=== PATIENT | male | born 1995 | race African-American/Black ===

== ENCOUNTER 2017-09-13 18:24 | Emergency (ER) | payer OTHER, SELFPAY ==
[2017-09-13 18:25] VITALS: BP 141/88; PULSE 75; RESP 16; TEMP 36.7; O2SAT 96; BMI 29.0
--- NOTE | 2017-09-13 18:32 | EKG12_ITS ---
Test Reason : CP Blood Pressure : / mmHG Vent. Rate : 067 BPM Atrial Rate : 067 BPM P-R Int : 140 ms QRS Dur : 098 ms QT Int : 376 ms P-R-T Axes : 063 019 043 degrees QTc Int : 397 ms Normal sinus rhythm with sinus arrhythmia Normal ECG Confirmed by GAIL DONNELLY, JAMAL ([id number]), television news video editor PAULA MONK ([id number] on 09/19/2017 3:57:24 PM Referred By: JEANETTE Confirmed By:JAMAL REYNOLDS MD
--- NOTE | 2017-09-13 18:39 | ED.RN ---
NO OLD EKG'S IN MUSE
--- NOTE | 2017-09-13 19:09 | RAD_ITS ---
STUDY: X-RAY CHEST REASON FOR EXAM: Male, 21 years old. Chest pain TECHNIQUE: Frontal and lateral views of the chest. COMPARISON: None. FINDINGS: The lungs are clear and expanded. There is no demonstrated pleural abnormality. Normal size heart. Normal mediastinum and rosario. Normal visualized pulmonary arteries. Normal visualized aortic arch and descending thoracic aorta. Normal visualized thoracic spine. Normal visualized ribs, clavicles, and shoulders. There is no demonstrated abnormality of the visualized soft tissue structures of the upper abdomen. RAD/Chest PA and Lateral IMPRESSION: Normal x-ray examination of the chest. Electronically Signed: Roni Pinto MD at 19:20 EST , Service support ,
--- NOTE | 2017-09-13 19:16 | ED.DCSUM_ITS ---
- ER Visit Summary Date of Service: 09/13/17 Chief Complaint: Chest pain History of Present Illness: The patient is a 21 M who has noted an intermittent sharp left chest pain lateral to his breast for the past couple days. He also notes a left elbow pain in the posterior aspect left wrist pain. He states he has recently been working out more doing bench press and pull-ups. Denies any syncope or near syncope. Denies any significant medical problems. States when he puts on her chest and it is worse. Physical Examination: Afebrile vital signs are stable Gen: Well-nourished well-developed Head: Normocephalic atraumatic Eyes: Perrl EOMI ENT: TMs clear no rhinorrhea moist mucous membranes Neck: Supple no lymphadenopathy no JVD nontender CVS: Regular rate rhythm no murmurs normal S1-S2 Respiratory: No distress clear to auscultation bilaterally left chest wall just lateral to the breast is tender and reproduces his pain. Abdomen: Soft nontender nondistended normal bowel sounds no masses Back: Nontender Extremity: Nontender no edema Skin: Normal color no rash Neuro: alert orientated ?3 CN II-XII intact normal strength sensation reflexes gait cerebellar Psych: Normal affect normal mood Test Results: Chest x-ray negative. EKG sinus at a rate of 67. Emergency Department Course and Treatment: Believe his symptoms are musculoskeletal. Most likely related to his recent increase in lifting weights. He is to decrease his weight and switched to dumbbells. Return if worsening. Impression:. 1. Chest wall pain 2. Left arm strain This note was generated with [employer] dictation software. It may contain incorrect words, spelling, and punctuation that were not noted in review of the chart prior to signing ED Disposition - Plan for ED Patient: Disposition: Home or Assisted Living Chief Complaint: Chest Pain Instructions: ED Chest Pain NonCardiac, ED Strain Chest Wall Referrals: [facility] Doctor,Out of [Primary Care Provider] - [facility] [GROUP OF PHYSICIANS] - 1 Week if not improving
[2017-09-13 19:22] VITALS: BP 136/81
== END 2017-09-13 19:27 | disposition home or self-care (01) ==
PROVIDERS: Emergency Provider Emergency Medicine
DX: R07.89 Other chest pain (principal); S46.912A Strain of unspecified muscle, fascia and tendon at shoulder and upper arm level, left arm, initial encounter; X58.XXXA Exposure to other specified factors, initial encounter; Y93.B2 Activity, push-ups, pull-ups, sit-ups; Y92.9 Unspecified place or not applicable; Y99.9 Unspecified external cause status
CPT/HCPCS: 71046; 93005; 99282